=== PATIENT | female | born 1955 | race African-American/Black ===

== ENCOUNTER 2019-02-07 14:23 | Inpatient (IN) | payer OTHER ==
[~2019-02-07] VITALS: Ht 165.1 cm; Wt 103.9 kg
[2019-02-07] MEDS ORDERED: FAMOTIDINE 20MG/2ML VIAL IV STA (17:53)
[2019-02-07] MEDS ORDERED: ONDANSETRON HCL 4MG/2ML INJ IV STA (17:53)
[2019-02-07] MEDS ORDERED: SODIUM CHLORIDE 0.9% 1,000 ML IV ONE (17:53)
[2019-02-07 18:06] LABS: BASOPHILS % 0.3 % (0.0-2.0); EOSINOPHILS % 3.1 % (0.0-5.0); HEMATOCRIT. 43.2 % (36.0-48.0); HEMOGLOBIN. 14.4 g/dL (12.0-16.0); LYMPHOCYTES % 18.4 % (20.0-50.0); MEAN CORPUSCULAR HEMOGLOBIN 30.5 pg (28.0-32.0); MEAN CORPUSCULAR VOLUME 91.2 fL (81.0-99.0); MONOCYTES % 12.7 % (2.0-8.0); NEUTROPHILS % 65.5 % (40.0-76.0); PLATELET 230 x1000/uL (130-400); RED BLOOD CELL COUNT 4.74 mill/uL (4.2-5.4); RED CELL DISTRIBUTION WIDTH 14.5 % (11.6-14.6)
[2019-02-07 18:12] LABS: CHLORIDE 110 mEq/L (98-107)
[2019-02-07 19:09] LABS: CLARITY URINE CLOUDY (CLEAR); COLOR URINE DARK YELLOW (YELLOW); KETONES URINE TRACE (NEGATIVE); LEUKOCYTE ESTERASE URINE 1+ (NEGATIVE); NITRITE URINE NEGATIVE (NEGATIVE); OCCULT BLOOD URINE NEGATIVE (NEGATIVE); PROTEIN URINE 3+ (NEGATIVE); SPECIFIC GRAVITY URINE 1.029 (1.005-1.030)
[2019-02-07] MEDS ORDERED: CEFTRIAXONE 1 G PREMIX 50 ML IV ONE (19:45)
[2019-02-07] MEDS ORDERED: PIPERACILLIN/TAZ 3.375G PREMIX 50 ML IV ONE (20:00)
[2019-02-07] MEDS ORDERED: POTASSIUM CHLORIDE 20MEQ TABLET SR PO ONE (20:00)
[2019-02-07 22:28] VITALS: BP 138/71
[2019-02-08] VITALS: BP 138/71
[2019-02-08] MEDS ORDERED: CLON0.2T MT (00:09)
[2019-02-08] MEDS ORDERED: LOVA20TA2 MT (00:10)
[2019-02-08] MEDS ORDERED: LOSA1TAB34 MT (00:11)
[2019-02-08] MEDS ORDERED: OMEP20CA5 MT (00:12)
[2019-02-08] MEDS ORDERED: AMLO10TA80 MT (00:13)
[2019-02-08] MEDS ORDERED: BUPR150T9 MT (00:15)
[2019-02-08 04:00] VITALS: BP 136/72
[2019-02-08] MEDS: DEXT 5%/0.45% NACL KCL 20MEQ/L 1,000 ML IV SCH ×2 (04:02→11:28)
[2019-02-08] MEDS: CLONIDINE 0.1MG TABLET PO SCH ×3 (06:04→21:39)
[2019-02-08 06:44] LABS: HEMATOCRIT. 41.9 % (36.0-48.0); MEAN CORPUSCULAR HEMOGLOBIN 30.6 pg (28.0-32.0); MEAN CORPUSCULAR VOLUME 91.6 fL (81.0-99.0); MEAN PLATELET VOLUME 9.5 fl (7.4-10.4); PLATELET 239 x1000/uL (130-400); RED BLOOD CELL COUNT 4.58 mill/uL (4.2-5.4); RED CELL DISTRIBUTION WIDTH 14.6 % (11.6-14.6)
[2019-02-08 06:46] LABS: CHLORIDE 110 mEq/L (98-107)
[2019-02-08 08:00] VITALS: BP 134/68
[2019-02-08] MEDS: AMLODIPINE 10MG TABLET PO SCH (09:00)
[2019-02-08] MEDS: LOSARTAN POTASSIUM 100 MG TABLET PO SCH (09:00)
[2019-02-08] MEDS: LACTOBACILLUS GG CAPSULE PO SCH (09:00)
[2019-02-08] MEDS: FAMOTIDINE 20MG TABLET PO SCH ×2 (09:00→21:39)
[2019-02-08] MEDS: ENOXAPARIN 30MG/0.3ML SYR SUBCUT SCH ×2 (09:00→21:38)
[2019-02-08] MEDS ORDERED: POTASSIUM CHLORIDE INJ 40 MEQ in DEXT 5% WATER 500 ML IV SCH (11:00)
[2019-02-08] MEDS: LEVOFLOXACIN 500MG PREMIX 100 ML IV SCH (11:27)
[2019-02-08 11:40] VITALS: BP 155/74
[2019-02-08 12:12] LABS: PLATELET ESTIMATE NORMAL
[2019-02-08] MEDS: METRONIDAZOLE 500 MG PREMIX 100 ML IV SCH ×2 (13:27→21:43)
[2019-02-08 16:00] VITALS: BP 134/64
[2019-02-08 20:00] VITALS: BP 142/77
[2019-02-08] MEDS: ATORVASTATIN CALCIUM 20MG TABLET PO SCH (21:39)
[2019-02-08] MEDS: MORPHINE SULFATE 2 MG/ML CPJ (NOT FOR IM USE) IV PRN (23:02)
[2019-02-09] VITALS: BP 124/64
[2019-02-09 04:00] VITALS: BP 117/62
[2019-02-09] MEDS: MORPHINE SULFATE 2 MG/ML CPJ (NOT FOR IM USE) IV PRN ×3 (04:07→13:38)
[2019-02-09] MEDS: CLONIDINE 0.1MG TABLET PO SCH ×3 (05:49→21:33)
[2019-02-09] MEDS: METRONIDAZOLE 500 MG PREMIX 100 ML IV SCH ×3 (05:49→21:34)
[2019-02-09 08:00] VITALS: BP 143/59
[2019-02-09] MEDS: AMLODIPINE 10MG TABLET PO SCH (08:41)
[2019-02-09] MEDS: LACTOBACILLUS GG CAPSULE PO SCH (08:41)
[2019-02-09] MEDS: FAMOTIDINE 20MG TABLET PO SCH ×2 (08:41→21:32)
[2019-02-09] MEDS: LOSARTAN POTASSIUM 100 MG TABLET PO SCH (08:41)
[2019-02-09] MEDS: ENOXAPARIN 30MG/0.3ML SYR SUBCUT SCH ×2 (08:42→21:33)
[2019-02-09] MEDS: DEXT 5%/0.45% NACL KCL 20MEQ/L 1,000 ML IV SCH (10:22)
[2019-02-09] MEDS: LEVOFLOXACIN 500MG PREMIX 100 ML IV SCH (10:22)
[2019-02-09 12:00] VITALS: BP 128/64
[2019-02-09 13:53] LABS: CHLORIDE 111 mEq/L (98-107)
[2019-02-09 13:59] LABS: BASOPHILS % 0.2 % (0.0-2.0); EOSINOPHILS % 0.3 % (0.0-5.0); HEMATOCRIT. 42.5 % (36.0-48.0); LYMPHOCYTES % 8.3 % (20.0-50.0); MEAN CORPUSCULAR HEMOGLOBIN 30.4 pg (28.0-32.0); MEAN CORPUSCULAR VOLUME 92.2 fL (81.0-99.0); MONOCYTES % 13.1 % (2.0-8.0); NEUTROPHILS % 78.1 % (40.0-76.0); PLATELET 244 x1000/uL (130-400); RED BLOOD CELL COUNT 4.61 mill/uL (4.2-5.4); RED CELL DISTRIBUTION WIDTH 14.7 % (11.6-14.6)
[2019-02-09 16:00] VITALS: BP 110/63
[2019-02-09] MEDS: ACETAMINOPHEN 325MG TABLET PO PRN (17:16)
[2019-02-09] MEDS: ATORVASTATIN CALCIUM 20MG TABLET PO SCH (21:32)
[2019-02-09] MEDS: HYDROCODONE/ACETAMINOPHEN 5/325MG TABLET PO PRN (21:53)
[2019-02-09] MEDS: MORPHINE SULFATE 4 MG/ML CPJ (NOT FOR IM USE) IV PRN (23:53)
[2019-02-10] VITALS (7 sets, daily range): BP systolic 111–162; BP diastolic 54–68
[2019-02-10] MEDS: DEXT 5%/0.45% NACL KCL 20MEQ/L 1,000 ML IV SCH ×2 (03:20→10:20)
[2019-02-10] MEDS: METRONIDAZOLE 500 MG PREMIX 100 ML IV SCH ×3 (06:01→21:26)
[2019-02-10] MEDS: CLONIDINE 0.1MG TABLET PO SCH ×3 (06:01→22:00)
[2019-02-10] MEDS: MORPHINE SULFATE 4 MG/ML CPJ (NOT FOR IM USE) IV PRN ×3 (06:02→23:38)
[2019-02-10] MEDS: LOSARTAN POTASSIUM 100 MG TABLET PO SCH (08:10)
[2019-02-10] MEDS: FAMOTIDINE 20MG TABLET PO SCH ×2 (08:10→21:26)
[2019-02-10] MEDS: LACTOBACILLUS GG CAPSULE PO SCH (08:10)
[2019-02-10] MEDS: ENOXAPARIN 30MG/0.3ML SYR SUBCUT SCH ×2 (08:10→21:26)
[2019-02-10] MEDS: AMLODIPINE 10MG TABLET PO SCH (08:11)
[2019-02-10] MEDS: ACETAMINOPHEN 325MG TABLET PO PRN (08:16)
[2019-02-10] MEDS: LEVOFLOXACIN 500MG PREMIX 100 ML IV SCH (10:19)
[2019-02-10 13:28] LABS: BASOPHILS % 0.2 % (0.0-2.0); HEMATOCRIT. 41.6 % (36.0-48.0); HEMOGLOBIN. 13.8 g/dL (12.0-16.0); LYMPHOCYTES % 10.3 % (20.0-50.0); MEAN CORPUSCULAR HEMOGLOBIN 30.4 pg (28.0-32.0); MEAN CORPUSCULAR VOLUME 91.7 fL (81.0-99.0); MEAN PLATELET VOLUME 9.1 fl (7.4-10.4); NEUTROPHILS % 76.5 % (40.0-76.0); PLATELET 260 x1000/uL (130-400); RED BLOOD CELL COUNT 4.54 mill/uL (4.2-5.4); RED CELL DISTRIBUTION WIDTH 14.9 % (11.6-14.6)
[2019-02-10 13:35] LABS: INR 1.2; PROTHROMBIN TIME 12.6 sec (9.6-11.0)
[2019-02-10 13:41] LABS: T4 FREE 1.54 ng/dL (0.76-1.46)
[2019-02-10] MEDS: HYDROCODONE/ACETAMINOPHEN 5/325MG TABLET PO PRN (16:58)
[2019-02-10] MEDS: ATORVASTATIN CALCIUM 20MG TABLET PO SCH (21:25)
[2019-02-11] VITALS: BP 120/65
[2019-02-11] MEDS: DEXT 5%/0.45% NACL KCL 20MEQ/L 1,000 ML IV SCH ×3 (03:00→21:55)
[2019-02-11 04:00] VITALS: BP 111/57
[2019-02-11] MEDS: MORPHINE SULFATE 4 MG/ML CPJ (NOT FOR IM USE) IV PRN ×2 (04:59→11:47)
[2019-02-11] MEDS: CLONIDINE 0.1MG TABLET PO SCH ×3 (05:30→21:55)
[2019-02-11] MEDS: METRONIDAZOLE 500 MG PREMIX 100 ML IV SCH ×3 (05:30→21:55)
[2019-02-11] MEDS: HYDROCODONE/ACETAMINOPHEN 5/325MG TABLET PO PRN ×2 (06:33→14:57)
[2019-02-11 08:00] VITALS: BP 118/64
[2019-02-11] MEDS: LACTOBACILLUS GG CAPSULE PO SCH (08:40)
[2019-02-11] MEDS: LOSARTAN POTASSIUM 100 MG TABLET PO SCH (08:40)
[2019-02-11] MEDS: FAMOTIDINE 20MG TABLET PO SCH ×2 (08:40→20:20)
[2019-02-11] MEDS: AMLODIPINE 10MG TABLET PO SCH (08:40)
[2019-02-11] MEDS: ENOXAPARIN 30MG/0.3ML SYR SUBCUT SCH ×2 (08:42→20:21)
[2019-02-11 12:00] VITALS: BP 115/57
[2019-02-11 12:12] LABS: BASOPHILS % 0.2 % (0.0-2.0); EOSINOPHILS % 1.2 % (0.0-5.0); HEMATOCRIT. 39.3 % (36.0-48.0); HEMOGLOBIN. 12.8 g/dL (12.0-16.0); LYMPHOCYTES % 9.4 % (20.0-50.0); MEAN CORPUSCULAR HEMOGLOBIN 30.2 pg (28.0-32.0); MEAN CORPUSCULAR VOLUME 92.5 fL (81.0-99.0); MEAN PLATELET VOLUME 9.2 fl (7.4-10.4); MONOCYTES % 11.8 % (2.0-8.0); NEUTROPHILS % 77.4 % (40.0-76.0); PLATELET 261 x1000/uL (130-400); RED BLOOD CELL COUNT 4.25 mill/uL (4.2-5.4)
[2019-02-11] MEDS: LEVOFLOXACIN 500MG PREMIX 100 ML IV SCH (12:32)
[2019-02-11 16:00] VITALS: BP 112/57
[2019-02-11] MEDS ORDERED: MORPHINE SULFATE 2 MG/ML CPJ (NOT FOR IM USE) IV PRN (19:30)
[2019-02-11 20:00] VITALS: BP 130/63
[2019-02-11] MEDS: ATORVASTATIN CALCIUM 20MG TABLET PO SCH (20:20)
[2019-02-12] VITALS: BP 114/67
[2019-02-12] MEDS: HYDROCODONE/ACETAMINOPHEN 5/325MG TABLET PO PRN ×2 (01:03→08:29)
[2019-02-12 04:00] VITALS: BP 119/70
[2019-02-12] MEDS: METRONIDAZOLE 500 MG PREMIX 100 ML IV SCH (06:30)
[2019-02-12] MEDS: CLONIDINE 0.1MG TABLET PO SCH ×3 (06:30→23:17)
[2019-02-12 06:44] LABS: HEMATOCRIT. 34.7 % (36.0-48.0); HEMOGLOBIN. 11.6 g/dL (12.0-16.0); MEAN CORPUSCULAR HEMOGLOBIN 30.5 pg (28.0-32.0); MEAN CORPUSCULAR VOLUME 91.4 fL (81.0-99.0); MEAN PLATELET VOLUME 8.8 fl (7.4-10.4); PLATELET 260 x1000/uL (130-400); RED CELL DISTRIBUTION WIDTH 14.8 % (11.6-14.6)
[2019-02-12 08:00] VITALS: BP 117/67
[2019-02-12] MEDS: ENOXAPARIN 30MG/0.3ML SYR SUBCUT SCH ×2 (08:28→20:42)
[2019-02-12] MEDS: AMLODIPINE 10MG TABLET PO SCH (08:29)
[2019-02-12] MEDS: FAMOTIDINE 20MG TABLET PO SCH ×2 (08:29→20:41)
[2019-02-12] MEDS: LACTOBACILLUS GG CAPSULE PO SCH (08:30)
[2019-02-12 12:00] VITALS: BP 120/62
[2019-02-12] MEDS: LEVOFLOXACIN 500MG PREMIX 100 ML IV SCH (13:36)
[2019-02-12] MEDS: HYDROCODONE/APAP 7.5/325MG 1 TAB TABLET PO PRN ×2 (14:29→20:41)
[2019-02-12 15:51] VITALS: BP 120/67
[2019-02-12] MEDS ORDERED: ETHYL CHLORIDE CAN TOP NR (17:00)
[2019-02-12] MEDS ORDERED: LIDOCAINE HCL/EPINEPHRINE 1%-EPI 1:100,000 20 ML VIAL INFIL NR (17:00)
[2019-02-12 17:59] LABS: PLATELET ESTIMATE NORMAL
[2019-02-12] MEDS: PIPERACILLIN/TAZ 2.25G PREMIX 50 ML IV SCH ×2 (18:07→23:18)
[2019-02-12 20:00] VITALS: BP 136/74
[2019-02-12] MEDS: ATORVASTATIN CALCIUM 20MG TABLET PO SCH (20:41)
[2019-02-13] VITALS: BP 129/73
[2019-02-13 04:00] VITALS: BP 122/75
[2019-02-13] MEDS: DEXT 5%/0.45% NACL KCL 20MEQ/L 1,000 ML IV SCH (05:05)
[2019-02-13] MEDS: PIPERACILLIN/TAZ 2.25G PREMIX 50 ML IV SCH ×2 (05:06→11:57)
[2019-02-13] MEDS: CLONIDINE 0.1MG TABLET PO SCH ×2 (05:08→13:13)
[2019-02-13] MEDS: HYDROCODONE/APAP 7.5/325MG 1 TAB TABLET PO PRN ×3 (05:09→15:40)
[2019-02-13 08:00] VITALS: BP 117/68
[2019-02-13] MEDS: LACTOBACILLUS GG CAPSULE PO SCH (09:20)
[2019-02-13] MEDS: FAMOTIDINE 20MG TABLET PO SCH (09:20)
[2019-02-13] MEDS: AMLODIPINE 10MG TABLET PO SCH (09:20)
[2019-02-13] MEDS: ENOXAPARIN 30MG/0.3ML SYR SUBCUT SCH (09:21)
[2019-02-13 12:00] VITALS: BP 114/69
[2019-02-13 15:58] VITALS: BP 104/51
[2019-02-13 17:00] VITALS: BP 104/51
== END 2019-02-13 17:35 | DRG 392 ==
LOC: ER 15:03 → 6EST 20:37 → EDBEDREQ 20:39 → ENRESERV 21:16
PROVIDERS: ADMIT Internal Medicine; ATTEND Internal Medicine
PROC: 0S9D3ZZ Drainage of Left Knee Joint, Percutaneous Approach (ICD-10-PCS; principal; 2019-02-12)
DX: K52.9 Noninfective gastroenteritis and colitis, unspecified (principal); N39.0 Urinary tract infection, site not specified; E66.2 Morbid (severe) obesity with alveolar hypoventilation; N17.9 Acute kidney failure, unspecified; E44.1 Mild protein-calorie malnutrition; M17.12 Unilateral primary osteoarthritis, left knee; E86.0 Dehydration; K21.9 Gastro-esophageal reflux disease without esophagitis; E87.6 Hypokalemia; I10 Essential (primary) hypertension; K76.89 Other specified diseases of liver; B95.1 Streptococcus, group B, as the cause of diseases classified elsewhere; F17.210 Nicotine dependence, cigarettes, uncomplicated; G89.29 Other chronic pain; M25.462 Effusion, left knee; Z96.651 Presence of right artificial knee joint; M54.5 Low back pain; Z68.38 Body mass index [BMI] 38.0-38.9, adult; Z90.710 Acquired absence of both cervix and uterus; Z79.899 Other long term (current) drug therapy
CPT/HCPCS: 36415; 71045; 73560; 73700; 74176; 76770; 80048; 80061; 83605; 83735; 84145; 84439; 84443; 84550; 87015; 87045; 87077; 87427; 87449; 87493; 89055; 89060; 93970; 97116; 97162; 97530; 99285; C1893; J1650; J1956; J2270; J2405; J2543; J3480; J3490; J7030; J7060; A4315

== ENCOUNTER 2023-05-21 14:51 | Inpatient (IN) | payer OTHER ==
[~2023-05-21] VITALS: Ht 165.1 cm; Wt 91.2 kg
[~2023-05-21 14:51] MED LIST: AMLO10TA80 MT; BUPR-114 MT; CLON0.2T MT; LOSA1TAB34 MT; LOVA20TA2 MT; OMEP20CA14 MT
[2023-05-21] MEDS ORDERED: FUROSEMIDE 40MG/4ML VIAL IVP ONE (15:00)
[2023-05-21 15:51] LABS: PROTHROMBIN TIME 10.5 sec (9.6-11.0)
[2023-05-21 15:59] LABS: BASOPHILS % 0.8 % (0.0-2.0); EOSINOPHILS % 0.4 % (0.0-5.0); HEMATOCRIT. 30.8 % (36.0-48.0); HEMOGLOBIN. 10.1 g/dL (12.0-16.0); MEAN CORPUSCULAR HEMOGLOBIN 27.6 pg (28.0-32.0); MEAN CORPUSCULAR VOLUME 83.6 fL (81.0-99.0); MEAN PLATELET VOLUME 8.1 fl (7.4-10.4); MONOCYTES % 10.5 % (2.0-8.0); NEUTROPHILS % 80.3 % (40.0-76.0); PLATELET 248 x1000/uL (130-400); RED BLOOD CELL COUNT 3.68 mill/uL (4.2-5.4); RED CELL DISTRIBUTION WIDTH 15.6 % (11.6-14.6); WHITE BLOOD COUNT 4.8 x1000/uL (4.5-11.0)
[2023-05-21 16:02] LABS: CHLORIDE 101 mEq/L (98-107); INDEX HEMOLYSI 1 (1-3); INDEX ICTERIC 1 (1-4); INDEX LIPEMIC 1 (1-3); SODIUM 128 mEq/L (136-145)
[2023-05-21 16:10] LABS: POTASSIUM 2.8 mEq/L (3.5-5.1)
[2023-05-21 16:14] LABS: ALANINE AMINOTRANSFERASE 32 IU/L (13-61); ASPARTATE AMINOTRANSFERASE 32 IU/L (15-37); BILIRUBIN TOTAL 0.8 mg/dL (0.1-1.0); CALCIUM 9.3 mg/dL (8.5-10.1); CARBON DIOXIDE 20 mEq/L (21-32); CREATININE 1.7 mg/dL (0.6-1.3); GLUCOSE 90 mg/dL (70-105); NT PRO B-TYPE NATRIURETIC PEP 428 pg/mL (5-125); PROTEIN TOTAL 7.1 g/dL (6.0-8.3); TROPONIN I HIGH SENSITIVITY 26 ng/L (<54); UREA NITROGEN BLOOD 33 mg/dL (7-21)
[2023-05-21] MEDS ORDERED: POTASSIUM CHLORIDE 20MEQ TABLET SR PO ONE (16:45)
[2023-05-21] MEDS ORDERED: KCL 20MEQ/100ML PREMIX 100 ML IV ONE (16:45)
[2023-05-21] MEDS ORDERED: POTASSIUM CHLORIDE 20MEQ TABLET SR PO NR (16:45)
[2023-05-21] MEDS ORDERED: MAGNESIUM 2 G PREMIX 50 ML IV ONE (16:45)
[2023-05-21 18:29] LABS: CLARITY URINE CLEAR (CLEAR); COLOR URINE YELLOW (YELLOW); GLUCOSE URINE NEGATIVE (NEGATIVE); KETONES URINE NEGATIVE (NEGATIVE); LEUKOCYTE ESTERASE URINE NEGATIVE (NEGATIVE); NITRITE URINE NEGATIVE (NEGATIVE); OCCULT BLOOD URINE NEGATIVE (NEGATIVE); PROTEIN URINE NEGATIVE (NEGATIVE); SPECIFIC GRAVITY URINE 1.006 (1.005-1.030); UROBILINOGEN URINE 0.2 E.U./dL (0.2-1.0)
[2023-05-21 20:00] VITALS: BP 150/70; PULSE 80; RESP 19; RESP 20; TEMP 97.7
[2023-05-21] MEDS ORDERED: LOSA1TAB37 MT (21:16)
[2023-05-21] MEDS ORDERED: SERT-422 MT (21:19)
[2023-05-21] MEDS ORDERED: ATOR40TA70 MT (21:19)
[2023-05-21] MEDS ORDERED: DOCUSATE SODIUM 100MG CAPSULE PO PRN (22:00)
[2023-05-21] MEDS ORDERED: KCL 10MEQ/50ML PREMIX 50 ML IV SCH (22:00)
[2023-05-21] MEDS ORDERED: ENOXAPARIN 40MG/0.4ML SYR SUBCUT SCH (22:00)
[2023-05-21] MEDS ORDERED: MAGNESIUM/ALUMINUM HYDROXIDE/SIMETHICONE 30ML UDC PO PRN (22:00)
[2023-05-21] MEDS ORDERED: DIPHENHYDRAMINE 50MG CAPSULE PO PRN (22:00)
[2023-05-21] MEDS ORDERED: ACETAMINOPHEN 325MG TABLET PO PRN (22:00)
[2023-05-21] MEDS: ENOXAPARIN 30MG/0.3ML SYR SUBCUT SCH (23:07)
[2023-05-21] MEDS: AMLODIPINE 10MG TABLET PO SCH (23:10)
[2023-05-21] MEDS: CLONIDINE 0.2MG TABLET PO SCH (23:10)
[2023-05-22] VITALS (7 sets, daily range): BP systolic 97–134; BP diastolic 51–64; PULSE 64–72; RESP 16–19; TEMP 96–98.8
[2023-05-22] MEDS: KCL 10MEQ/50ML PREMIX 50 ML IV SCH ×3 (03:56→09:05)
[2023-05-22 05:52] LABS: BASOPHILS % 2.4 % (0.0-2.0); EOSINOPHILS % 3.9 % (0.0-5.0); HEMATOCRIT. 27.6 % (36.0-48.0); HEMOGLOBIN. 9.3 g/dL (12.0-16.0); LYMPHOCYTES % 28.5 % (20.0-50.0); MEAN CORPUSCULAR HEMOGLOBIN 28.4 pg (28.0-32.0); MEAN CORPUSCULAR HGB CONC 33.6 g/dL (31.0-37.0); MEAN CORPUSCULAR VOLUME 84.3 fL (81.0-99.0); MEAN PLATELET VOLUME 8.4 fl (7.4-10.4); MONOCYTES % 13.3 % (2.0-8.0); NEUTROPHILS % 51.9 % (40.0-76.0); PLATELET 225 x1000/uL (130-400); RED BLOOD CELL COUNT 3.28 mill/uL (4.2-5.4); RED CELL DISTRIBUTION WIDTH 15.8 % (11.6-14.6); WHITE BLOOD COUNT 3.9 x1000/uL (4.5-11.0)
[2023-05-22] MEDS: OMEPRAZOLE 20MG CAPSULE EXTENDED RELEASE PO SCH (06:22)
[2023-05-22 06:34] LABS: CHLORIDE 104 mEq/L (98-107); INDEX HEMOLYSI 1 (1-3); INDEX ICTERIC 1 (1-4); INDEX LIPEMIC 1 (1-3); POTASSIUM 3.1 mEq/L (3.5-5.1); SODIUM 131 mEq/L (136-145)
[2023-05-22 06:49] LABS: ALANINE AMINOTRANSFERASE 27 IU/L (13-61); ALBUMIN 2.5 g/dL (3.4-5.0); ASPARTATE AMINOTRANSFERASE 31 IU/L (15-37); BILIRUBIN TOTAL 0.4 mg/dL (0.1-1.0); CALCIUM 9.3 mg/dL (8.5-10.1); CARBON DIOXIDE 21 mEq/L (21-32); CREATININE 1.6 mg/dL (0.6-1.3); GLUCOSE 72 mg/dL (70-105); IRON 59 ug/dL (50-175); PROTEIN TOTAL 5.9 g/dL (6.0-8.3); TOTAL IRON BINDING CAPACITY 188 ug/dL (250-450); UREA NITROGEN BLOOD 30 mg/dL (7-21)
[2023-05-22 07:32] LABS: VITAMIN B12 SERUM 1640 pg/mL (211-911)
[2023-05-22] MEDS: LOSARTAN 100 MG TABLET PO SCH (09:07)
[2023-05-22] MEDS: AMLODIPINE 10MG TABLET PO SCH (09:07)
[2023-05-22] MEDS: CLONIDINE 0.2MG TABLET PO SCH (09:07)
[2023-05-22] MEDS: SERTRALINE HCL 50MG TABLET PO SCH (09:07)
[2023-05-22] MEDS: ENOXAPARIN 30MG/0.3ML SYR SUBCUT SCH ×2 (09:08→20:35)
[2023-05-22] MEDS ORDERED: POTASSIUM CHLORIDE 20MEQ TABLET SR PO NR (12:30)
[2023-05-22] MEDS ORDERED: FUROSEMIDE 40MG/4ML VIAL IVP NR (12:30)
[2023-05-22 13:21] LABS: POTASSIUM 3.4 mEq/L (3.5-5.1)
[2023-05-22 20:53] LABS: *AMPHETAMINES SCREEN URINE NEGATIVE (NEGATIVE); *BARBITURATES SCREEN URINE NEGATIVE (NEGATIVE); *BENZODIAZEPINES SCREEN URINE NEGATIVE (NEGATIVE); *COCAINE SCREEN URINE NEGATIVE (NEGATIVE); CANNABINOID URINE SCREEN NEGATIVE (NEGATIVE); ECSTASY MDMA SCREEN URINE NEGATIVE (NEGATIVE); OPIATES URINE SCREEN NEGATIVE (NEGATIVE); PHENCYCLIDINE URINE SCREEN NEGATIVE (NEGATIVE)
[2023-05-22] MEDS ORDERED: ATORVASTATIN CALCIUM 40MG TABLET PO SCH (21:00)
[2023-05-23] VITALS (7 sets, daily range): BP systolic 114–130; BP diastolic 51–75; PULSE 64–82; RESP 18–19; TEMP 97–97.6; O2SAT 99
[2023-05-23] MEDS: OMEPRAZOLE 20MG CAPSULE EXTENDED RELEASE PO SCH (07:03)
[2023-05-23] MEDS: LOSARTAN 100 MG TABLET PO SCH (09:06)
[2023-05-23] MEDS: CLONIDINE 0.2MG TABLET PO SCH (09:06)
[2023-05-23] MEDS: AMLODIPINE 10MG TABLET PO SCH (09:06)
[2023-05-23] MEDS: SERTRALINE HCL 50MG TABLET PO SCH (09:06)
[2023-05-23] MEDS: ENOXAPARIN 30MG/0.3ML SYR SUBCUT SCH (09:07)
[2023-05-23] MEDS ORDERED: KETOROLAC 10MG TABLET PO PRN (10:00)
[2023-05-23] MEDS ORDERED: NALOXONE HCL 0.4MG/ML VIAL IV PRN (10:15)
[2023-05-23] MEDS ORDERED: TRAMADOL 50MG TABLET PO PRN (10:15)
[2023-05-23 10:44] LABS: CHLORIDE 105 mEq/L (98-107); INDEX HEMOLYSI 1 (1-3); INDEX ICTERIC 1 (1-4); INDEX LIPEMIC 1 (1-3); POTASSIUM 3.5 mEq/L (3.5-5.1); SODIUM 134 mEq/L (136-145)
[2023-05-23 10:55] LABS: ALANINE AMINOTRANSFERASE 26 IU/L (13-61); ALBUMIN 2.8 g/dL (3.4-5.0); ASPARTATE AMINOTRANSFERASE 24 IU/L (15-37); BILIRUBIN TOTAL 0.4 mg/dL (0.1-1.0); CALCIUM 9.6 mg/dL (8.5-10.1); CARBON DIOXIDE 24 mEq/L (21-32); CREATININE 1.4 mg/dL (0.6-1.3); GLUCOSE 109 mg/dL (70-105); PROTEIN TOTAL 6.6 g/dL (6.0-8.3); UREA NITROGEN BLOOD 29 mg/dL (7-21)
[2023-05-23] MEDS ORDERED: FURO-151 MT (15:00)
== END 2023-05-23 19:19 | disposition home health service (06) | DRG 291 ==
LOC: ER 14:51 → 8WST 18:37 → EDBEDREQ 18:41
PROVIDERS: ADMIT Internal Medicine Pulmonary Disease; ATTEND Internal Medicine Pulmonary Disease
DX: I11.0 Hypertensive heart disease with heart failure (principal); I50.33 Acute on chronic diastolic (congestive) heart failure; E87.1 Hypo-osmolality and hyponatremia; E87.6 Hypokalemia; E66.9 Obesity, unspecified; M17.12 Unilateral primary osteoarthritis, left knee; E78.00 Pure hypercholesterolemia, unspecified; K21.9 Gastro-esophageal reflux disease without esophagitis; Z96.659 Presence of unspecified artificial knee joint; Z90.710 Acquired absence of both cervix and uterus; Z68.33 Body mass index [BMI] 33.0-33.9, adult
CPT/HCPCS: 36415; 70551; 71045; 80053; 80305; 81003; 82607; 82746; 83540; 83550; 83735; 83880; 84132; 84443; 84484; 85025; 93005; 93306; 93970; 95816; 97162; 99285; J1650; J1940; J3475; J3480

== ENCOUNTER 2024-08-17 17:43 | Inpatient (IN) | payer MEDICAID, MEDICARE ==
[~2024-08-17] VITALS: Ht 165.1 cm; Wt 77.1 kg
[~2024-08-17 17:43] MED LIST changes: +ATOR40TA70 MT; -BUPR-114 MT; +FURO-151 MT; +HYDR-4001 MT; -LOSA1TAB34 MT; +LOSA1TAB37 MT; -LOVA20TA2 MT; +SERT-422 MT
[2024-08-17 18:30] LABS: CHLORIDE 112 mEq/L (98-107); POTASSIUM 3.4 mEq/L (3.5-5.1); SODIUM 140 mEq/L (136-145)
[2024-08-17 18:31] LABS: CALCIUM 8.4 mg/dL (8.7-10.4); CARBON DIOXIDE 15 mEq/L (21-32)
[2024-08-17 18:36] LABS: CREATININE 3.3 mg/dL (0.6-1.0); GLUCOSE 105 mg/dL (70-105); UREA NITROGEN BLOOD 38 mg/dL (9-23)
[2024-08-17 18:37] LABS: TROPONIN I HIGH SENSITIVITY 10 ng/L (3.0-34)
[2024-08-17 18:50] LABS: HEMOGLOBIN. 7.1 g/dL (12.0-16.0); MEAN CORPUSCULAR HGB CONC 30.8 g/dL (31.0-37.0); MEAN CORPUSCULAR VOLUME 87.8 fL (81.0-99.0); MEAN PLATELET VOLUME 7.6 fl (7.4-10.4); PLATELET 354 x1000/uL (130-400); RED BLOOD CELL COUNT 2.62 mill/uL (4.2-5.4); RED CELL DISTRIBUTION WIDTH 17.9 % (11.6-14.6); WHITE BLOOD COUNT 5.4 x1000/uL (4.5-11.0)
[2024-08-17 18:51] LABS: DIFFERENTIAL COMMENT 1
[2024-08-17 18:56] LABS: PROTHROMBIN TIME 10.8 sec (9.6-11.0)
[2024-08-17 19:11] LABS: ANISOCYTOSIS 1+; PLATELET ESTIMATE NORMAL
[2024-08-17 19:49] LABS: ALANINE AMINOTRANSFERASE < 7 IU/L (10-49); ASPARTATE AMINOTRANSFERASE 17 IU/L (<34); BILIRUBIN TOTAL < 0.2 mg/dL (0.1-1.0); PROTEIN TOTAL 6.5 g/dL (6.0-8.3)
[2024-08-17 20:10] LABS: BILIRUBIN DIRECT < 0.1 mg/dL (<=3.0)
[2024-08-17 22:00] VITALS: BP 124/59; PULSE 58; RESP 18; TEMP 36.3918; O2SAT 97
[2024-08-17] MEDS ORDERED: MAGNESIUM/ALUMINUM HYDROXIDE/SIMETHICONE 30ML UDC PO PRN (22:00)
[2024-08-17] MEDS ORDERED: IPRATROPIUM/ALBUTEROL 0.5-3(2.5)MG/3ML NEB HHN PRN (22:00)
[2024-08-17] MEDS ORDERED: ONDANSETRON HCL 4MG/2ML INJ IV PRN (22:00)
[2024-08-17 22:06] VITALS: BP 124/59; PULSE 58; RESP 18; TEMP 36.418
[2024-08-17] MEDS ORDERED: DEXTROSE 50% WATER 50ML SYRINGE IV PRN (22:15)
[2024-08-17 23:10] LABS: IRON 37 ug/dL (50-170)
[2024-08-17 23:13] LABS: PHOSPHORUS 4.6 mg/dL (2.5-4.9); TOTAL IRON BINDING CAPACITY 577 ug/dl (250-425)
[2024-08-17] MEDS ORDERED: MAGN400T7 MT (23:50)
[2024-08-17] MEDS ORDERED: POTA-202 MT (23:51)
[2024-08-18] VITALS: BP 126/79; PULSE 50; RESP 18; TEMP 36.3918; O2SAT 99
[2024-08-18] MEDS: SODIUM CHLORIDE 0.9% 1,000 ML IV ONE (00:42)
[2024-08-18] MEDS: POTASSIUM CHLORIDE 20MEQ TABLET SR PO NR (00:42)
[2024-08-18 01:40] LABS: *AMPHETAMINES SCREEN URINE NEGATIVE (NEGATIVE); *BENZODIAZEPINES SCREEN URINE NEGATIVE (NEGATIVE)
[2024-08-18 01:41] LABS: *BARBITURATES SCREEN URINE NEGATIVE (NEGATIVE); *COCAINE SCREEN URINE NEGATIVE (NEGATIVE); CANNABINOID URINE SCREEN NEGATIVE (NEGATIVE); CREATININE URINE RANDOM 60.3 mg/dL; ECSTASY MDMA SCREEN URINE NEGATIVE (NEGATIVE); METHADONE URINE SCREEN NEGATIVE (NEGATIVE); OPIATES URINE SCREEN NEGATIVE (NEGATIVE); PHENCYCLIDINE URINE SCREEN NEGATIVE (NEGATIVE)
[2024-08-18 03:41] LABS: CLARITY URINE CLEAR (CLEAR); COLOR URINE YELLOW (YELLOW); GLUCOSE URINE NEGATIVE (NEGATIVE); PH URINE 5.5 (4.5-8.0); PROTEIN URINE 2+ (NEGATIVE); SPECIFIC GRAVITY URINE 1.011 (1.005-1.030)
[2024-08-18 03:42] LABS: KETONES URINE NEGATIVE (NEGATIVE); LEUKOCYTE ESTERASE URINE TRACE (NEGATIVE); NITRITE URINE NEGATIVE (NEGATIVE); OCCULT BLOOD URINE NEGATIVE (NEGATIVE); UROBILINOGEN URINE 0.2 E.U./dL (0.2-1.0)
[2024-08-18 04:00] VITALS: BP 130/59; PULSE 57; RESP 18; TEMP 36.05844; O2SAT 98
[2024-08-18 04:45] LABS: RBC URINE 0-2 /hpf (0-2); WBC URINE 0-2 /hpf (0-2)
[2024-08-18 04:46] LABS: SQUAMOUS EPITHELIAL CELL URINE FEW /lpf (RARE/1+)
[2024-08-18 04:47] LABS: BACTERIA URINE NONE SEEN
[2024-08-18 06:14] LABS: POTASSIUM 3.2 mEq/L (3.5-5.1)
[2024-08-18 06:15] LABS: CALCIUM 8.6 mg/dL (8.7-10.4)
[2024-08-18 06:20] LABS: CREATININE 2.9 mg/dL (0.6-1.0)
[2024-08-18 06:21] LABS: FOLIC ACID (FOLATE) SERUM 4.59 ng/mL (>5.38); VITAMIN B12 SERUM 1011 pg/mL (211-911)
[2024-08-18 06:24] LABS: T4 FREE 0.5 ng/dL (0.89-1.76); THYROID STIMULATING HORMONE 1.94 uIU/mL (0.55-4.78)
[2024-08-18 07:00] LABS: BASOPHILS % 1.2 % (0.0-2.0); EOSINOPHILS % 10.5 % (0.0-5.0); HEMOGLOBIN. 7.1 g/dL (12.0-16.0); MEAN CORPUSCULAR HEMOGLOBIN 27.5 pg (28.0-32.0); MEAN CORPUSCULAR HGB CONC 32.1 g/dL (31.0-37.0); MEAN CORPUSCULAR VOLUME 85.7 fL (81.0-99.0); MEAN PLATELET VOLUME 7.6 fl (7.4-10.4); MONOCYTES % 5.1 % (2.0-8.0); NEUTROPHILS % 49.2 % (40.0-76.0); PLATELET 350 x1000/uL (130-400); RED BLOOD CELL COUNT 2.57 mill/uL (4.2-5.4); RED CELL DISTRIBUTION WIDTH 17.7 % (11.6-14.6); WHITE BLOOD COUNT 4.6 x1000/uL (4.5-11.0)
[2024-08-18 08:00] VITALS: BP 128/55; PULSE 59; RESP 18; TEMP 36.44736; O2SAT 98
[2024-08-18] MEDS: POTASSIUM CHLORIDE 20MEQ TABLET SR PO SCH (09:30)
[2024-08-18] MEDS: MAGNESIUM 2 G PREMIX 50 ML IV SCH (11:04)
[2024-08-18] MEDS: PANTOPRAZOLE SODIUM 40 MG/VIAL IV SCH (11:04)
[2024-08-18 12:00] VITALS: BP 128/52; PULSE 56; RESP 18; TEMP 36.22512; O2SAT 98
[2024-08-18] MEDS ORDERED: MESA1.2T2 MT (12:41)
[2024-08-18] MEDS ORDERED: CARV6.2548 PO (12:43)
[2024-08-18 16:00] VITALS: BP 125/59; PULSE 57; RESP 18; TEMP 36.61404; O2SAT 98
[2024-08-18] MEDS: PANTOPRAZOLE 40MG DR TABLET PO SCH (19:13)
[2024-08-18] MEDS: FOLIC ACID/VITAMIN B COMP W-C TABLET PO SCH (19:13)
[2024-08-18] MEDS: LEVOTHYROXINE SODIUM 25MCG TABLET PO SCH (19:13)
[2024-08-18] MEDS: SODIUM CHLORIDE 0.9% 1,000 ML IV SCH (19:14)
[2024-08-18 20:00] VITALS: BP 126/60; PULSE 58; RESP 18; TEMP 36.72516; O2SAT 98
[2024-08-18] MEDS: ATORVASTATIN CALCIUM 40MG TABLET PO SCH (20:47)
[2024-08-18] MEDS: MELATONIN 3MG TABLET PO NR (21:07)
[2024-08-18 23:59] LABS: HEMATOCRIT 24.7 % (36.0-48.0); HEMOGLOBIN 7.8 g/dL (12.0-16.0); MEAN CORPUSCULAR HEMOGLOBIN 27.1 pg (28.0-32.0); MEAN CORPUSCULAR HGB CONC 31.8 g/dL (31.0-37.0); MEAN CORPUSCULAR VOLUME 85.4 fL (81.0-99.0); PLATELET 361 x1000/uL (130-400); RED BLOOD CELL COUNT 2.89 mill/uL (4.2-5.4); RED CELL DISTRIBUTION WIDTH 17.8 % (11.6-14.6); WHITE BLOOD COUNT 5.5 x1000/uL (4.5-11.0)
[2024-08-19] VITALS: BP 125/62; PULSE 63; RESP 18; TEMP 36.3918; O2SAT 99
[2024-08-19 04:00] VITALS: BP 132/60; PULSE 60; RESP 18; TEMP 36.50292; O2SAT 99
[2024-08-19 05:51] LABS: HEMATOCRIT 22.5 % (36.0-48.0); HEMOGLOBIN 7.2 g/dL (12.0-16.0); MEAN CORPUSCULAR HEMOGLOBIN 26.9 pg (28.0-32.0); MEAN CORPUSCULAR HGB CONC 31.8 g/dL (31.0-37.0); MEAN CORPUSCULAR VOLUME 84.6 fL (81.0-99.0); PLATELET 332 x1000/uL (130-400); RED BLOOD CELL COUNT 2.65 mill/uL (4.2-5.4); RED CELL DISTRIBUTION WIDTH 17.9 % (11.6-14.6); WHITE BLOOD COUNT 4.5 x1000/uL (4.5-11.0)
[2024-08-19 08:00] VITALS: BP 147/69; PULSE 62; RESP 18; TEMP 36.55848; O2SAT 100
[2024-08-19] MEDS ORDERED: NON FORMULARY MED XX SCH (10:45)
[2024-08-19] MEDS: FOLIC ACID 1MG TABLET PO SCH (11:48)
[2024-08-19 12:12] VITALS: BP 158/97; PULSE 59; RESP 18; TEMP 37.00296; O2SAT 99
[2024-08-19] MEDS: SUCRALFATE 1G TABLET PO SCH (13:20)
[2024-08-19] MEDS: CLONIDINE 0.1MG TABLET PO PRN (13:20)
[2024-08-19 16:24] LABS: HEMATOCRIT 24.4 % (36.0-48.0); HEMOGLOBIN 7.5 g/dL (12.0-16.0); MEAN CORPUSCULAR HEMOGLOBIN 26.8 pg (28.0-32.0); MEAN CORPUSCULAR HGB CONC 30.7 g/dL (31.0-37.0); MEAN CORPUSCULAR VOLUME 87.3 fL (81.0-99.0); PLATELET 358 x1000/uL (130-400); RED CELL DISTRIBUTION WIDTH 17.9 % (11.6-14.6); WHITE BLOOD COUNT 5.2 x1000/uL (4.5-11.0)
[2024-08-19] MEDS: IRON SUCROSE COMPLEX 100 MG/5 ML ML IV SCH (16:59)
[2024-08-19 20:00] VITALS: BP 150/77; PULSE 72; RESP 19; TEMP 36.6696
[2024-08-19] MEDS: DEXT 5%/0.45% NACL 1000ML 1,000 ML IV SCH (21:12)
[2024-08-20] VITALS (11 sets, daily range): BP systolic 104–176; BP diastolic 68–84; PULSE 57–78; RESP 15–23; TEMP 36.16956–37.55856; O2SAT 98–100
[2024-08-20] MEDS ORDERED: LIDOCAINE HCL 1% 10 MG/ML 10ML VIAL ONE (08:26)
[2024-08-20] MEDS ORDERED: IOHEXOL-300 100 ML BOTTLE ONE (08:26)
[2024-08-20] MEDS ORDERED: CEFAZOLIN 1000MG PREMIX 50 ML IV ONE (08:27)
[2024-08-20] MEDS: CEFAZOLIN 1000MG PREMIX 50 ML IV ONE (08:30)
[2024-08-20 13:07] LABS: BASOPHILS % 0.7 % (0.0-2.0); EOSINOPHILS % 6.9 % (0.0-5.0); HEMATOCRIT. 24.4 % (36.0-48.0); HEMOGLOBIN. 7.5 g/dL (12.0-16.0); LYMPHOCYTES % 13.9 % (20.0-50.0); MEAN CORPUSCULAR HEMOGLOBIN 27.5 pg (28.0-32.0); MEAN CORPUSCULAR HGB CONC 30.9 g/dL (31.0-37.0); MEAN PLATELET VOLUME 7.6 fl (7.4-10.4); MONOCYTES % 4.8 % (2.0-8.0); NEUTROPHILS % 73.7 % (40.0-76.0); PLATELET 340 x1000/uL (130-400); RED BLOOD CELL COUNT 2.74 mill/uL (4.2-5.4); RED CELL DISTRIBUTION WIDTH 18.6 % (11.6-14.6); WHITE BLOOD COUNT 5.9 x1000/uL (4.5-11.0)
[2024-08-20 13:15] LABS: CALCIUM 8.5 mg/dL (8.7-10.4); CARBON DIOXIDE 17 mEq/L (21-32); CHLORIDE 117 mEq/L (98-107); POTASSIUM 3.2 mEq/L (3.5-5.1); SODIUM 144 mEq/L (136-145)
[2024-08-20 13:19] LABS: CREATININE 2.2 mg/dL (0.6-1.0); GLUCOSE 98 mg/dL (70-105)
[2024-08-20 13:20] LABS: UREA NITROGEN BLOOD 28 mg/dL (9-23)
[2024-08-20] MEDS: LACTATED RINGERS 1,000 ML IV SCH (13:49)
[2024-08-20] MEDS: MESALAMINE 1.2 GM PO SCH (17:25)
[2024-08-20] MEDS: FAMOTIDINE 20MG TABLET PO SCH (21:07)
[2024-08-20] MEDS: ACETAMINOPHEN 325MG TABLET PO PRN (21:53)
[2024-08-21] VITALS (13 sets, daily range): BP systolic 146–189; BP diastolic 60–89; PULSE 64–84; RESP 16–20; TEMP 36.16956–36.78072; O2SAT 95–100
[2024-08-21] MEDS: ACETAMINOPHEN 325MG TABLET PO PRN (07:00)
[2024-08-21] MEDS: LOSARTAN 100 MG TABLET PO SCH (09:45)
[2024-08-21] MEDS: AMLODIPINE 10MG TABLET PO SCH (09:55)
[2024-08-21 13:26] LABS: MEAN CORPUSCULAR VOLUME 87.2 fL (81.0-99.0); PLATELET 313 x1000/uL (130-400); RED BLOOD CELL COUNT 2.58 mill/uL (4.2-5.4); RED CELL DISTRIBUTION WIDTH 18.4 % (11.6-14.6); WHITE BLOOD COUNT 4.3 x1000/uL (4.5-11.0)
[2024-08-21 13:27] LABS: CARBON DIOXIDE 17 mEq/L (21-32); CHLORIDE 116 mEq/L (98-107); SODIUM 144 mEq/L (136-145)
[2024-08-21 13:28] LABS: CALCIUM 8.6 mg/dL (8.7-10.4)
[2024-08-21 13:32] LABS: CREATININE 2.1 mg/dL (0.6-1.0)
[2024-08-21 13:33] LABS: GLUCOSE 82 mg/dL (70-105); UREA NITROGEN BLOOD 25 mg/dL (9-23)
[2024-08-21 13:42] LABS: HEMATOCRIT 22.5 % (36.0-48.0)
[2024-08-21] MEDS ORDERED: LEVO25TA7 MT (15:05)
[2024-08-21] MEDS: POTASSIUM CHLORIDE 20MEQ TABLET SR PO NR (17:04)
== END 2024-08-21 23:00 | disposition home or self-care (01) | DRG 299 ==
LOC: ER 17:43 → 7WST 23:25
PROVIDERS: ADMIT Preventive Medicine Clinical Informatics; ATTEND Preventive Medicine Clinical Informatics
PROC: 06H03DZ Insertion of Intraluminal Device into Inferior Vena Cava, Percutaneous Approach (ICD-10-PCS; 2024-08-20)
PROC: 30233N1 Transfusion of Nonautologous Red Blood Cells into Peripheral Vein, Percutaneous Approach (ICD-10-PCS; principal; 2024-08-21)
DX: I82.431 Acute embolism and thrombosis of right popliteal vein (principal); I50.33 Acute on chronic diastolic (congestive) heart failure; N17.0 Acute kidney failure with tubular necrosis; K51.911 Ulcerative colitis, unspecified with rectal bleeding; I13.0 Hypertensive heart and chronic kidney disease with heart failure and stage 1 through stage 4 chronic kidney disease, or unspecified chronic kidney disease; E87.20 Acidosis, unspecified; D50.0 Iron deficiency anemia secondary to blood loss (chronic); E78.5 Hyperlipidemia, unspecified; E03.9 Hypothyroidism, unspecified; E78.00 Pure hypercholesterolemia, unspecified; E87.6 Hypokalemia; E83.42 Hypomagnesemia; K21.9 Gastro-esophageal reflux disease without esophagitis; E53.8 Deficiency of other specified B group vitamins; K76.89 Other specified diseases of liver; E66.9 Obesity, unspecified; M48.061 Spinal stenosis, lumbar region without neurogenic claudication; D63.8 Anemia in other chronic diseases classified elsewhere; K57.30 Diverticulosis of large intestine without perforation or abscess without bleeding; N18.9 Chronic kidney disease, unspecified; Z90.710 Acquired absence of both cervix and uterus; Z79.899 Other long term (current) drug therapy; Z95.828 Presence of other vascular implants and grafts; Z87.891 Personal history of nicotine dependence; Z87.440 Personal history of urinary (tract) infections
CPT/HCPCS: 36415; 37191; 71045; 74176; 76770; 80048; 80061; 80076; 80305; 81003; 82270; 82570; 82607; 82728; 82746; 82962; 83036; 83540; 83550; 83615; 83735; 83880; 83930; 84100; 84300; 84439; 84443; 84484; 85025; 85027; 85044; 86850; 86900; 86920; 93005; 93970; 99291; C1769; C1880; J0690; J1644; J2003; J2470; J3475; J7030; P9016; Q9967

== ENCOUNTER 2024-12-08 12:07 | Inpatient (IN) | payer OTHER, MEDICARE ==
[~2024-12-08] VITALS: Ht 167.6 cm; Wt 85.7 kg
[~2024-12-08 12:07] MED LIST changes: +LEVO25TA7 MT; +MESA1.2T2 MT; +POTA-202 MT
[2024-12-08 12:37] LABS: BASOPHILS % 0.6 % (0.0-2.0); EOSINOPHILS % 3.5 % (0.0-5.0); HEMATOCRIT. 26.6 % (36.0-48.0); HEMOGLOBIN. 8.4 g/dL (12.0-16.0); LYMPHOCYTES % 21.6 % (20.0-50.0); MEAN CORPUSCULAR HEMOGLOBIN 27.1 pg (28.0-32.0); MEAN CORPUSCULAR HGB CONC 31.4 g/dL (31.0-37.0); MEAN CORPUSCULAR VOLUME 86.4 fL (81.0-99.0); MEAN PLATELET VOLUME 8.4 fl (7.4-10.4); MONOCYTES % 6.1 % (2.0-8.0); NEUTROPHILS % 68.2 % (40.0-76.0); PLATELET 278 x1000/uL (130-400); RED BLOOD CELL COUNT 3.08 mill/uL (4.2-5.4); RED CELL DISTRIBUTION WIDTH 23.4 % (11.6-14.6); WHITE BLOOD COUNT 6.5 x1000/uL (4.5-11.0)
[2024-12-08 12:42] LABS: DIFFERENTIAL COMMENT 1
[2024-12-08 12:43] LABS: ADD RBC MORPHOLOGY YES
[2024-12-08 12:53] LABS: CHLORIDE 110 mEq/L (98-107); POTASSIUM 3.5 mEq/L (3.5-5.1); SODIUM 142 mEq/L (136-145)
[2024-12-08 12:54] LABS: CALCIUM 8.7 mg/dL (8.7-10.4); CARBON DIOXIDE 22 mEq/L (21-32)
[2024-12-08 12:59] LABS: GLUCOSE 101 mg/dL (70-105); UREA NITROGEN BLOOD 28 mg/dL (9-23)
[2024-12-08 13:00] LABS: ALANINE AMINOTRANSFERASE 9 IU/L (10-49)
[2024-12-08 13:01] LABS: ALBUMIN 3.2 g/dL (3.2-4.8); ASPARTATE AMINOTRANSFERASE 17 IU/L (<34); BILIRUBIN DIRECT < 0.1 mg/dL (<=3.0); BILIRUBIN TOTAL 0.3 mg/dL (0.1-1.0); PROTEIN TOTAL 6.7 g/dL (6.0-8.3); TROPONIN I HIGH SENSITIVITY 17 ng/L (3.0-34)
[2024-12-08] MEDS: HYDRALAZINE 20MG/ML VIAL IV ONE ×2 (13:07→16:11)
[2024-12-08] MEDS: FUROSEMIDE 40MG/4ML VIAL IVP ONE (13:07)
[2024-12-08 13:14] LABS: PROTHROMBIN TIME 10.6 sec (9.6-11.0)
[2024-12-08 13:22] LABS: ANISOCYTOSIS 3+
[2024-12-08 13:26] LABS: PLATELET ESTIMATE NORMAL
[2024-12-08 14:14] LABS: CREATININE 3.7 mg/dL (0.6-1.0)
[2024-12-08] MEDS: GUAIFENESIN-DM 200MG-20MG/10ML UDC PO ONE (17:09)
[2024-12-08 18:14] LABS: INFLUENZA TYPE A Presumptive Negative (Pres. Neg.)
[2024-12-08 18:15] LABS: INFLUENZA TYPE B Presumptive Negative (Pres. Neg.); RESPIRATORY SYNCYTIAL VIRUS Not Detected (Not Detectd)
[2024-12-08] MEDS: NITROGLYCERIN 0.4MG TABLET SL SL ONE (18:45)
[2024-12-08] MEDS: HYDRALAZINE 20MG/ML VIAL IV NR (20:24)
[2024-12-08] MEDS ORDERED: AMLODIPINE 10MG TABLET PO SCH (21:30)
[2024-12-08] MEDS ORDERED: MAGNESIUM/ALUMINUM HYDROXIDE/SIMETHICONE 30ML UDC PO PRN (21:30)
[2024-12-08] MEDS ORDERED: CLONIDINE 0.2MG TABLET PO SCH (21:30)
[2024-12-08] MEDS: ACETAMINOPHEN 325MG TABLET PO PRN (22:07)
[2024-12-08] MEDS: LOSARTAN 100 MG TABLET PO SCH (22:08)
[2024-12-08] MEDS: POTASSIUM CHLORIDE 10MEQ TABLET SR PO SCH (22:08)
[2024-12-08] MEDS: HYDROCODONE/ACETAMINOPHEN 5/325MG TABLET PO PRN (22:36)
[2024-12-09] VITALS: BP 189/87; PULSE 89; RESP 18; TEMP 36.1
[2024-12-09] MEDS: PANTOPRAZOLE 40MG DR TABLET PO SCH (00:07)
[2024-12-09] MEDS: SERTRALINE HCL 50MG TABLET PO SCH (00:08)
[2024-12-09] MEDS: AMLODIPINE 10MG TABLET PO SCH (00:08)
[2024-12-09] MEDS: CLONIDINE 0.2MG TABLET PO SCH (06:29)
[2024-12-09] MEDS: LEVOTHYROXINE SODIUM 25MCG TABLET PO SCH (06:29)
[2024-12-09 08:00] VITALS: BP 135/72; PULSE 93; RESP 19; TEMP 36.3; O2SAT 98
[2024-12-09] MEDS: FUROSEMIDE 40MG/4ML VIAL IVP SCH (08:12)
[2024-12-09 08:22] LABS: BASOPHILS % 0.5 % (0.0-2.0); EOSINOPHILS % 1.2 % (0.0-5.0); HEMATOCRIT. 24.1 % (36.0-48.0); HEMOGLOBIN. 7.7 g/dL (12.0-16.0); LYMPHOCYTES % 18.4 % (20.0-50.0); MEAN CORPUSCULAR HEMOGLOBIN 27.5 pg (28.0-32.0); MEAN CORPUSCULAR HGB CONC 31.9 g/dL (31.0-37.0); MEAN CORPUSCULAR VOLUME 86.1 fL (81.0-99.0); MEAN PLATELET VOLUME 8.1 fl (7.4-10.4); MONOCYTES % 7.9 % (2.0-8.0); PLATELET 258 x1000/uL (130-400); WHITE BLOOD COUNT 3.8 x1000/uL (4.5-11.0)
[2024-12-09 08:29] LABS: CARBON DIOXIDE 25 mEq/L (21-32); CHLORIDE 113 mEq/L (98-107); SODIUM 145 mEq/L (136-145)
[2024-12-09 08:30] LABS: CALCIUM 8.6 mg/dL (8.7-10.4)
[2024-12-09 08:34] LABS: IRON 32 ug/dL (50-170); TROPONIN I HIGH SENSITIVITY 20 ng/L (3.0-34)
[2024-12-09 08:35] LABS: CREATININE 3.4 mg/dL (0.6-1.0); GLUCOSE 108 mg/dL (70-105); UREA NITROGEN BLOOD 32 mg/dL (9-23)
[2024-12-09 08:37] LABS: TOTAL IRON BINDING CAPACITY 235 ug/dl (250-425)
[2024-12-09 08:39] LABS: THYROID STIMULATING HORMONE 0.96 uIU/mL (0.55-4.78)
[2024-12-09 08:40] LABS: DIFFERENTIAL COMMENT 1
[2024-12-09] MEDS: MESALAMINE 400 MG CAPSULE.DR PO SCH ×2 (09:11→16:27)
[2024-12-09] MEDS: ENOXAPARIN 30MG/0.3ML SYR SUBCUT SCH (09:17)
[2024-12-09 12:00] VITALS: BP 145/69; PULSE 82; RESP 18; TEMP 36.5; O2SAT 98
[2024-12-09 13:14] LABS: TROPONIN I HIGH SENSITIVITY 15 ng/L (3.0-34)
[2024-12-09 16:00] VITALS: BP 153/75; PULSE 91; RESP 18; TEMP 36.6; O2SAT 99
[2024-12-09] MEDS: POTASSIUM CHLORIDE 20MEQ TABLET SR PO NR (17:06)
[2024-12-09 20:00] VITALS: BP 144/63; PULSE 87; RESP 18; TEMP 36.5; O2SAT 100
[2024-12-09] MEDS: IPRATROPIUM/ALBUTEROL 0.5-3(2.5)MG/3ML NEB HHN SCH (20:30)
[2024-12-09 20:32] VITALS: PULSE 87; RESP 19; O2SAT 99
[2024-12-09 20:58] LABS: BASOPHILS % 0.8 % (0.0-2.0); HEMATOCRIT. 24.9 % (36.0-48.0); HEMOGLOBIN. 7.7 g/dL (12.0-16.0); LYMPHOCYTES % 17.2 % (20.0-50.0); MEAN CORPUSCULAR HEMOGLOBIN 27.5 pg (28.0-32.0); MEAN CORPUSCULAR HGB CONC 31.1 g/dL (31.0-37.0); MEAN CORPUSCULAR VOLUME 88.6 fL (81.0-99.0); MEAN PLATELET VOLUME 8.1 fl (7.4-10.4); MONOCYTES % 6.6 % (2.0-8.0); NEUTROPHILS % 74.4 % (40.0-76.0); PLATELET 278 x1000/uL (130-400); RED BLOOD CELL COUNT 2.81 mill/uL (4.2-5.4); RED CELL DISTRIBUTION WIDTH 23.1 % (11.6-14.6); WHITE BLOOD COUNT 5.6 x1000/uL (4.5-11.0)
[2024-12-09 21:01] LABS: DIFFERENTIAL COMMENT 1
[2024-12-09 21:06] LABS: POTASSIUM 3.9 mEq/L (3.5-5.1)
[2024-12-09 21:07] LABS: CALCIUM 8.6 mg/dL (8.7-10.4)
[2024-12-09 21:12] LABS: CREATININE 3.5 mg/dL (0.6-1.0)
[2024-12-09] MEDS: ATORVASTATIN CALCIUM 40MG TABLET PO SCH (21:49)
[2024-12-09] MEDS: ZOLPIDEM TARTRATE 5MG TABLET PO PRN (21:49)
[2024-12-10] VITALS (12 sets, daily range): BP systolic 130–173; BP diastolic 69–85; PULSE 71–104; RESP 16–18; TEMP 36.5–37; O2SAT 98–100
[2024-12-10] MEDS ORDERED: METOLAZONE 2.5MG TABLET PO NR (12:15)
[2024-12-10] MEDS ORDERED: NALOXONE HCL 0.4MG/ML VIAL IV PRN (13:45)
[2024-12-10] MEDS: FERROUS SULFATE 325MG TABLET PO SCH (13:46)
[2024-12-11] VITALS (10 sets, daily range): BP systolic 148–162; BP diastolic 79–83; PULSE 78–92; RESP 14–20; TEMP 36.3–36.9; O2SAT 95–100
[2024-12-11 17:45] LABS: POTASSIUM 4.2 mEq/L (3.5-5.1)
[2024-12-11 17:46] LABS: CALCIUM 8.2 mg/dL (8.7-10.4)
[2024-12-11 17:51] LABS: CREATININE 3.6 mg/dL (0.6-1.0)
[2024-12-12] VITALS (10 sets, daily range): BP systolic 130–177; BP diastolic 74–88; PULSE 75–94; RESP 16–20; TEMP 36.1–36.9; O2SAT 95–100
[2024-12-12] MEDS: DOCUSATE SODIUM 100MG CAPSULE PO PRN (09:56)
[2024-12-12] MEDS ORDERED: POTA-354 MT (10:22)
[2024-12-12] MEDS ORDERED: FURO80TA87 MT (10:22)
[2024-12-12] MEDS: METOLAZONE 2.5MG TABLET PO NR (13:00)
== END 2024-12-12 17:14 | disposition home or self-care (01) | DRG 291 ==
LOC: ER 12:07 → CANBEDREQ 16:12 → 5WST 18:41
PROVIDERS: ADMIT Internal Medicine Pulmonary Disease; ATTEND Internal Medicine Pulmonary Disease
DX: I13.0 Hypertensive heart and chronic kidney disease with heart failure and stage 1 through stage 4 chronic kidney disease, or unspecified chronic kidney disease (principal); I50.33 Acute on chronic diastolic (congestive) heart failure; K21.9 Gastro-esophageal reflux disease without esophagitis; D64.9 Anemia, unspecified; E78.00 Pure hypercholesterolemia, unspecified; N18.9 Chronic kidney disease, unspecified; Z20.822 Contact with and (suspected) exposure to COVID-19; E66.9 Obesity, unspecified; Z96.659 Presence of unspecified artificial knee joint; E78.5 Hyperlipidemia, unspecified; Z68.30 Body mass index [BMI] 30.0-30.9, adult; Z90.710 Acquired absence of both cervix and uterus
CPT/HCPCS: 36415; 71045; 80048; 80076; 82728; 83540; 83550; 83880; 84443; 84484; 85025; 87420; 87426; 87804; 93005; 93306; 93970; 94070; 94640; 94664; 98960; 99291; J0360; J1650; J1940